=== PATIENT | female | born 1985 ===

== ENCOUNTER 2024-05-12 11:44 | Inpatient (IN) | payer MEDICAID, SELFPAY ==
--- NOTE | ~2024-05-12 | XR_ITS ---
EXAMINATION: XR HIP, RIGHT CLINICAL INFORMATION: Right hip pain. COMPARISON: None available. TECHNIQUE: Frontal view of the pelvis Two views of the right hip. FINDINGS: No fracture. No dislocation. Hip joints and sacroiliac joints and symphysis pubis are intact. XR/XR hip RT w PEL1V IMPRESSION: Normal pelvis and right hip.
--- NOTE | ~2024-05-12 | XR_ITS ---
EXAMINATION: XR CHEST CLINICAL INFORMATION: Rule out pneumonia COMPARISON: None available. TECHNIQUE: Frontal view of the chest was obtained. FINDINGS: The cardiac and mediastinal contours are normal. The lungs are clear. No pleural effusion or pneumothorax. Surgical clips under the left hemidiaphragm. Mild degenerative changes of the spine. XR/XR chest 1V IMPRESSION: No evidence for acute disease in the chest.
[2024-05-12 11:51] VITALS: BP 106/70; PULSE 42; O2SAT 98
[2024-05-12 11:57] VITALS: BP 123/61; PULSE 41; RESP 20; TEMP 36.4; O2SAT 100; BMI 24.2
--- NOTE | 2024-05-12 12:32 | PC.NURSE ---
Patient brought in by EMS w/ c/o R hip pain, when speaking to the patient during triage assessment, patient stated she would like an ultrasound because I might be . Patient also requesting to speak to a therapist as I have been under a lot of stress for a long time. Patient changed over into hospital attire w/ assistance of security, provider Jass made aware.
--- NOTE | 2024-05-12 12:36 | MHC.EDTECH ---
Patient belongings are in the washer/dryer closet in the ED POD.
[2024-05-12 13:49] VITALS: BP 130/77; PULSE 41; RESP 12; TEMP 35.8; O2SAT 100
--- NOTE | 2024-05-12 13:50 | ECG_ITS ---
Test Reason : BRADYCARDIA Blood Pressure : / mmHG Vent. Rate : 039 BPM Atrial Rate : 039 BPM P-R Int : 146 ms QRS Dur : 090 ms QT Int : 516 ms P-R-T Axes : 012 040 036 degrees QTc Int : 415 ms Marked sinus bradycardia Abnormal ECG No previous ECGs available Referred By: Jass Davis Electronically Signed By:JEFF NELSON MD
--- NOTE | 2024-05-12 14:35 | ED.GENADULT ---
HPI - General Adult General Chief complaint: General Medical Stated complaint: R HIP PAIN PER EMS Time Seen by Provider: 05/12/24 12:26 Source: patient Mode of arrival: ambulatory Limitations: no limitations History of Present Illness ED Provider: Jass Davis PA-C HPI narrative: 38-year-old female brought by EMS stating right hip pain. Patient was found sitting on the ground. Patient is not forthcoming during questioning. Patient does not want to speak much. Patient does states she would like to see therapist/ care team. Patient is not suicidal or homicidal. Patient denies falling to the ground. Patient will not elaborate further on any other physical complaints or symptoms. Patient just states right hip pain. Patient states just moved to the area. Patient will not state any medical or psych history. Related Data Home Medications ?Medication ?Instructions ?Recorded ?Confirmed No Known Home Meds 05/13/24 05/13/24 Allergies Allergy/AdvReac Type Severity Reaction Status Date / Time No Known Allergies Allergy Verified 05/12/24 11:59 Review of Systems Review of Systems: Right hip pain Yes all other systems are reviewed and are negative [facility] Social History Social History Advance Directives: No Advance Directives Information Provided: No Do you have a plan to hurt others: No Plan Physical Exam ED Vital Signs: Vital Signs - 24 hr 05/13/24 11:37 05/14/24 06:03 Temperature 97.1 F 97.2 F Pulse Rate 42 L 41 L Respiratory Rate 14 19 Blood Pressure 122/78 151/81 H Pulse Oximetry 100 100 Oxygen Delivery Method Room Air Room Air BMI result Body Mass Index 24.2 Const General: cooperative, healthy appearing, comfortable, no acute distress, well developed, alert and awake Orientation/consciousness: oriented to time and patient [facility]: Yes normal to inspection, Yes No palpable skull fracture present, Yes normocephalic, Yes atraumatic and No abrasion Ears: hearing grossly normal bilaterally, external ears normal, TM's normal bilaterally, TM normal on the right, TM normal on the left, EAC's normal, mastoids normal and no periauricular adenopathy Eyes General: appearance normal, both eyes and all related structures Neck Neck: Yes normal visual inspection, Yes full ROM, Yes no lymphadenopathy, Yes no meningeal signs, Yes trachea midline, Yes supple, No anterior neck swelling and No tender Chest Chest palpation & inspection: normal inspection of the chest and normal palpation of entire chest wall Resp Effort & Inspection: normal respiratory effort and able to speak in complete sentences Auscultation: clear to auscultation bilaterally Cardio Jugular venous distension: no JVD Heart sounds: S1 normal heart sound present and S2 normal heart sound present GI Inspection: Yes normal to inspection Palpation (GI): Soft to palpation, not firm, nontender, no guarding and not rigid General: No CVA tenderness and Yes no CVA tenderness Back/Spine/Pelvis Back: no CVA tenderness, No CVA tenderness and No back tenderness Skin General skin exam: no rashes or lesions noted, elasticity normal and turgor normal Neuro General: oriented to time, patient oriented x3, gait normal, tone normal, moves all extremities, Normal light touch and pain sensation, no meningeal signs, no focal motor deficits, CN's II-XI intact bilaterally and normal sensation to monofilament Extrem General: Yes normal to inspection and Yes full ROM Upper/lower leg/hip images: 1. slight hip tenderness on palpation. Negative for any ecchymosis, erythema, or deformity. Rest of extremity normal. Motor/neuro/vascular exam intact Psych Appearance: grossly normal, well kempt and not disheveled Course Reevaluation(s) Reevaluation #1: Patient very guarded, giving a false name will admit to the hospital Time: 09:35 Reevaluation #2: Physician observation ended as patient to be admitted Time: 09:36 Reevaluation #3: 05/14/24 706am Physician observation continued. VS stable, no acute events overnight S12 inpatient bed search observation never stopped did not have bed so she remained in our care in the ED Medications Administered Discontinued Medications Generic Name Dose Route Start Last Admin Trade Name Freq PRN Reason Stop Dose Admin Sodium Chloride 1,000 mls @ 999 mls/hr 05/12/24 14:48 05/12/24 18:16 Ns IV 05/12/24 15:48 Infused .Q1H1M STA Infusion Sodium Chloride 1,000 mls @ 999 mls/hr 05/12/24 18:10 05/12/24 19:31 Ns IV 05/12/24 19:10 Infused .Q1H1M STA Infusion Medical Decision Making Medical Decision Making MDM Narrative: 38-year-old female found sitting on the floor by EMS who states he has right hip pain. Patient denies falling. Patient not forthcoming. Patient has gestational like to speak to care team. Patient denies or wants they any cycle medical history. Patient found bradycardic. EKG shows marked sinus bradycardia. Patient denies any dizziness. Patient has changed into site gown and will have medical workup. On patient ambulates heart rate was up to 49. 6: 14pm: Patient Was a hard stick so IV ultrasound had to be placed. Labs were drawn fluids given. Patient states she feels better while being given fluids. Heart rate improved to 54. Patient is slightly leukopenic. UA normal. U tox negative. Alcohol negative. Patient walking around unlikely hip fracture but sent for x-ray. Patient is eating food. Plan is to do a 2nd troponin and patient to be evaluated the care team evaluation 6:41pm: patient's labs are normal. Patient feeling better. Care team consulted Michelle evaluated patient and states patient should stay overnight for Respite. she states patient is depressed due to losing her children to [facility] and has no place to live. She states patient has been couch hopping. She states patient is not suicidal or homicidal. 2nd troponin ordered. Patient Is sinus bradycardic. Patient asymptomatic. No shortness of breath no dizziness, no chest pain, and no hyportension. No need for any atropine. Patient slightly leukopenic. Signed out to JAY RILEY Differential Diagnosis Differential Diagnoses: The differential diagnosis associated with the presentation includes ( Myocardial infarction, dehydration, electrolyte deficiency, substance abuse, alcohol abuse,) Admission/Observation Consideration of admission/observation: Escalation of care including admission/observation considered Consult Healthcare Provider Management of the patient was discussed with: Spanish Language Lecturer (Care team Mcihelle) Lab Data [facility] Lab Attestation statement: I reviewed the patient's lab results. 05/12/24 16:56 05/12/24 16:56 Labs: Lab Results 05/12/24 05/12/24 05/12/24 Range/Units 14:40 15:14 16:56 WBC 2.6 L (4.8-10.8) X10*3/uL RBC 4.63 (4.20-5.50) X10*6/uL Hgb 12.6 (12.0-16.0) g/dl Hct 39.0 (37.0-47.0) % MCV 84.2 (80.0-98.0) fL MCH 27.2 (27.0-33.0) pg MCHC 32.3 (31.0-35.0) g/dl RDW 16.4 H (11.0-16.0) % Plt Count 306 (160-400) X10*3/uL MPV 9.3 L (9.4-12.3) fL Immature Gran % (Auto) 0.4 (0.0-0.4) % Neut % (Auto) 47.0 (45-73) % Lymph % (Auto) 38.9 (20-40) % [place] % (Auto) 8.4 (2-11) % Eos % (Auto) 3.8 (0-4) % Baso % (Auto) 1.5 (0-2) % Lymph # (Auto) 1.0 L (1.2-4.9) X10*3/uL [place] # (Auto) 0.2 (0.1-1.2) X10*3/uL Eos # (Auto) 0.1 (0.0-0.4) X10*3/uL Baso # (Auto) 0.0 (0.0-0.2) X10*3/uL Abs Immat Gran (auto) 0.01 (0.00-0.03) X10*3/uL Absolute Neuts (auto) 1.2 L (2.0-8.3) x10*3/uL Absolute Nucleated RBC 0.000 (0.0-0.012) X10*3/uL Nucleated RBC % (auto) 0.0 (0.0-0.2) /100WBC Hold Blue Top SEE NOTE Sodium 140 (135-145) mmol/L Potassium 4.5 (3.3-5.1) mmol/L Chloride 107 (96-108) mmol/L Carbon Dioxide 24 (22-29) mmol/L Anion Gap 14 (12-20) BUN 14 (9-16) mg/dL Creatinine 0.66 (0.5-1.4) mg/dL Estim Creat Clear Calc 109.2 Estimated GFR > 60 Random Glucose 66 (60-115) mg/dL Calcium 8.9 (8.4-10.2) mg/dL Magnesium 2.1 (1.6-2.6) mg/dL Total Bilirubin 0.3 (0.0-1.0) mg/dL AST 34 H (5-31) U/L ALT 23 (0-31) U/L Alkaline Phosphatase 77 (39-117) U/L Troponin I High Sens 4.0 (<3.5-17.0) ng/L Total Protein 7.3 (6.5-8.0) g/dL Albumin 3.5 (3.5-5.0) g/dL TSH 0.55 (0.32-4.0) uIU/mL Beta HCG, Quant < 2 mIU/mL Urine Color Yellow Urine Appearance Clear Urine pH 5.5 (5.0-9.0) Ur Specific [place] >= 1.030 H (1.005-1.025) Urine Protein Trace (Neg-Trace) mg/dL Urine Glucose (UA) Negative (Negative) mg/dL Urine Ketones Trace (Negative) mg/dL Urine Blood Negative (Negative) Urine Nitrite Negative (Negative) Ur Leukocyte Esterase Trace H (Negative) Urine RBC 0-2 (0-2) /HPF Urine WBC 0-5 (0-5) /HPF Ur Squamous Epith Cells 0-2 (0-2) /HPF Urine Bacteria None Seen (None Seen) Hyaline Casts 6-10 (0-2) /LPF Urine Test NEGATIVE (NEGATIVE) Urine Opiates Screen Not Detected (Not Detect) Ur Buprenorphine Scrn Not Detected (Not Detect) ng/mL Ur Oxycodone Screen Not Detected (Not Detect) ng/mL Urine Methadone Screen Not Detected (Not Detect) ng/mL Urine Fentanyl Screen Not Detected (Not Detect) Ur Barbiturates Screen Not Detected (Not Detect) Ur Phencyclidine Scrn Not Detected (Not Detect) Ur Amphetamines Screen Not Detected (Not Detect) U Benzodiazepines Scrn Not Detected (Not Detect) Urine Cocaine Screen Not Detected (Not Detect) U Marijuana (THC) Screen Not Detected (Not Detect) Ethyl Alcohol < 10 mg/dL Influenza Type A (PCR) NEGATIVE (Negative) Influenza Type B (PCR) NEGATIVE (Negative) RSV RNA Qual (PCR) NEGATIVE (Negative) SARS-CoV-2 RNA (RT-PCR) NEGATIVE (Negative) 05/12/24 Range/Units 19:10 WBC (4.8-10.8) X10*3/uL RBC (4.20-5.50) X10*6/uL Hgb (12.0-16.0) g/dl Hct (37.0-47.0) % MCV (80.0-98.0) fL MCH (27.0-33.0) pg MCHC (31.0-35.0) g/dl RDW (11.0-16.0) % Plt Count (160-400) X10*3/uL MPV (9.4-12.3) fL Immature Gran % (Auto) (0.0-0.4) % Neut % (Auto) (45-73) % Lymph % (Auto) (20-40) % [place] % (Auto) (2-11) % Eos % (Auto) (0-4) % Baso % (Auto) (0-2) % Lymph # (Auto) (1.2-4.9) X10*3/uL [place] # (Auto) (0.1-1.2) X10*3/uL Eos # (Auto) (0.0-0.4) X10*3/uL Baso # (Auto) (0.0-0.2) X10*3/uL Abs Immat Gran (auto) (0.00-0.03) X10*3/uL Absolute Neuts (auto) (2.0-8.3) x10*3/uL Absolute Nucleated RBC (0.0-0.012) X10*3/uL Nucleated RBC % (auto) (0.0-0.2) /100WBC Hold Blue Top Sodium (135-145) mmol/L Potassium (3.3-5.1) mmol/L Chloride (96-108) mmol/L Carbon Dioxide (22-29) mmol/L Anion Gap (12-20) BUN (9-16) mg/dL Creatinine (0.5-1.4) mg/dL Estim Creat Clear Calc Estimated GFR Random Glucose (60-115) mg/dL Calcium (8.4-10.2) mg/dL Magnesium (1.6-2.6) mg/dL Total Bilirubin (0.0-1.0) mg/dL AST (5-31) U/L ALT (0-31) U/L Alkaline Phosphatase (39-117) U/L Troponin I High Sens 4.2 (<3.5-17.0) ng/L Total Protein (6.5-8.0) g/dL Albumin (3.5-5.0) g/dL TSH (0.32-4.0) uIU/mL Beta HCG, Quant mIU/mL Urine Color Urine Appearance Urine pH (5.0-9.0) Ur Specific [place] (1.005-1.025) Urine Protein (Neg-Trace) mg/dL Urine Glucose (UA) (Negative) mg/dL Urine Ketones (Negative) mg/dL Urine Blood (Negative) Urine Nitrite (Negative) Ur Leukocyte Esterase (Negative) Urine RBC (0-2) /HPF Urine WBC (0-5) /HPF Ur Squamous Epith Cells (0-2) /HPF Urine Bacteria (None Seen) Hyaline Casts (0-2) /LPF Urine Test (NEGATIVE) Urine Opiates Screen (Not Detect) Ur Buprenorphine Scrn (Not Detect) ng/mL Ur Oxycodone Screen (Not Detect) ng/mL Urine Methadone Screen (Not Detect) ng/mL Urine Fentanyl Screen (Not Detect) Ur Barbiturates Screen (Not Detect) Ur Phencyclidine Scrn (Not Detect) Ur Amphetamines Screen (Not Detect) U Benzodiazepines Scrn (Not Detect) Urine Cocaine Screen (Not Detect) U Marijuana (THC) Screen (Not Detect) Ethyl Alcohol mg/dL Influenza Type A (PCR) (Negative) Influenza Type B (PCR) (Negative) RSV RNA Qual (PCR) (Negative) SARS-CoV-2 RNA (RT-PCR) (Negative) Independent Interpretation I performed an independent interpretation of an: EKG ( EKG sinus bradycardia) and Plain X-Ray Radiology Impression Discussion of test interpretation with radiology: I have reviewed the radiologist's reading. Independent Historian Clinical information obtained from an independent historian. History obtained from or confirmed by: EMS and Other ( patient is) External Record Review External record reviewed: Other Chronic Conditions Patient?s care impacted by: Other (depression) Discharge Plan Discharge Clinical Impression: Bradycardia, sinus, Depression Patient Disposition: Admitted As Inpatient Print Language: Vietnamese
--- NOTE | 2024-05-12 15:27 | PC.NURSE ---
Patient's HR noted to be in the 40's, provider aware, patient moved rooms to room w/ monitor, charge accounts audit clerk Darci aware.
[2024-05-12 15:29] LABS: Appearance Urine Clear; Color Urine Yellow; Glucose Urine UA Negative (Negative); Leukocyte Esterase Urine Trace (Negative); Nitrite Urine Negative (Negative); PH 5.5 (5.0-9.0); Specific Gravity - Urine >= 1.030 (1.005-1.025); UMIC TRIGGER UACC YES; Urine Blood Negative (Negative); Urine Ketones Trace mg/dL (Negative); Urine Protein Trace mg/dL (Neg-Trace)
[2024-05-12 15:30] LABS: UPreg QC Valid YES; Urine Pregnancy NEGATIVE (NEGATIVE)
[2024-05-12 15:39] LABS: Bacteria Urine None Seen (None Seen); RBC Urine 0-2 /HPF (0-2); Squamous Epithelial Cell Urine 0-2 /HPF (0-2); WBC Urine 0-5 /HPF (0-5)
[2024-05-12 15:46] LABS: Amphetamine Screen Urine Not Detected (Not Detect); Barbiturates, Urine Not Detected (Not Detect); Benzodiazepines Screen Urine Not Detected (Not Detect); Buprenorphine Scr Not Detected (Not Detect); Cannabinoid Screen Urine Not Detected (Not Detect); Cocaine Screen Urine Not Detected (Not Detect); Fentanyl, urine Not Detected (Not Detect); Methadone Screen, Urine Not Detected (Not Detect); Opiate Screen Urine Not Detected (Not Detect); Oxycodone Screen Urine Not Detected (Not Detect); Phencyclidine Screen Urine Not Detected (Not Detect)
--- NOTE | 2024-05-12 16:00 | PC.NURSE ---
Patient's labs and fluids delayed d/t difficult stick, multiple sticks by RNs, provider aware, to place US IV.
[2024-05-12 16:13] LABS: Influenza A PCR NEGATIVE (Negative); Influenza B PCR NEGATIVE (Negative); Resp Syncy Virus RNA Qual PCR NEGATIVE (Negative); SARS COV2 PCR INHOUSE NEGATIVE (Negative)
[2024-05-12] MEDS: 0.9 % Sodium Chloride 1,000 ML 999 ML IV ×2 (17:02→18:15)
[2024-05-12 17:03] VITALS: BP 143/79; PULSE 42; RESP 12
[2024-05-12 17:03] LABS: MANUAL DIFF FLAG NO
[2024-05-12 17:05] LABS: Hemoglobin 12.6 g/dl (12.0-16.0); Mean Corpuscular HGB Conc 32.3 g/dl (31.0-35.0); Mean Corpuscular Hemoglobin 27.2 pg (27.0-33.0); Mean Corpuscular Volume 84.2 fL (80.0-98.0); Mean Platelet Volume 9.3 fL (9.4-12.3); Platelet Count 306 X10*3/uL (160-400); Red Blood Count 4.63 X10*6/uL (4.20-5.50); Red Cell Distribution Width 16.4 % (11.0-16.0); White Blood Count 2.6 X10*3/uL (4.8-10.8)
[2024-05-12 17:06] LABS: Basophils Percent Auto 1.5 % (0-2); Eosinophils Absolute Auto 0.1 X10*3/uL (0.0-0.4); Eosinophils Percent Auto 3.8 % (0-4); Imm Gran Abs Auto 0.01 X10*3/uL (0.00-0.03); Imm Gran Pct Auto 0.4 % (0.0-0.4); Lymphocytes Percent Auto 38.9 % (20-40); Monocytes Absolute Auto 0.2 X10*3/uL (0.1-1.2); Monocytes Percent Auto 8.4 % (2-11); Neutrophils Absolute Auto 1.2 x10*3/uL (2.0-8.3)
[2024-05-12 17:21] LABS: Ethanol < 10 mg/dL
[2024-05-12 17:32] LABS: Alanine Aminotransferase 23 U/L (0-31); Albumin Level 3.5 g/dL (3.5-5.0); Alkaline Phosphatase 77 U/L (39-117); Anion Gap 14 (12-20); Aspartate Amino Transferase 34 U/L (5-31); Bilirubin Total 0.3 mg/dL (0.0-1.0); Blood Urea Nitrogen 14 mg/dL (9-16); Calcium 8.9 mg/dL (8.4-10.2); Carbon Dioxide 24 mmol/L (22-29); Chloride 107 mmol/L (96-108); Creatinine Clr Calc Pharmacy 109.2; Estimated Glomerular Filt Rate > 60; Glucose Random 66 mg/dL (60-115); Magnesium 2.1 mg/dL (1.6-2.6); Potassium 4.5 mmol/L (3.3-5.1); Sodium 140 mmol/L (135-145); Total Protein 7.3 g/dL (6.5-8.0)
[2024-05-12 17:45] LABS: HCG Quantitative < 2 mIU/mL; TSH reflex Free T4 0.55 uIU/mL (0.32-4.0)
[2024-05-12 17:51] VITALS: BP 135/75; PULSE 41; RESP 10; TEMP 36.4; O2SAT 100
[2024-05-12 18:10] VITALS: PULSE 54; RESP 10
[2024-05-12 19:43] LABS: Troponin-I High Sensitivity 4.2 ng/L (<3.5-17.0)
--- NOTE | 2024-05-12 21:04 | MHC.CARE ---
Addendum entered by Rebecca Campo LCSW 05/12/24 21:28: Contacted [facility] at 9:27pm, spoke with Dalia. Referral activated and will be reviewed. Original Note: Pt is a [facility] (respite) bedsearch. [facility] has no beds until Sunday. Referral sent to [facility]
--- NOTE | 2024-05-12 22:24 | PC.NURSE ---
RN to RN report given to Rubi, all questions answered.
--- NOTE | 2024-05-12 22:35 | PC.NURSE ---
Patient's IV line removed, walked over to POD w/ EDT, So. Patient's phone to be returned w/ her belongings already locked in pod.
--- NOTE | 2024-05-13 05:00 | PC.NURSE ---
patient had come out around 0300 and asked again about taking a shower, was instructed she must wait until am then asked about dc. discussed this briefly with provider but it seemed unclear that a 0400 dc seemed like the best safety plan for this client, awaiting client to ask again for dc.
--- NOTE | 2024-05-13 07:07 | PC.NURSE ---
Assumed care of patient at 0645. Patient is observed resting in their room. No signs of distress observed. Will continue plan of care.
--- NOTE | 2024-05-13 10:59 | MHC.CARE ---
Pt initially checked into ED under a false name and reported she was Yesica Jane, she gave of 1985.
[2024-05-13 11:37] VITALS: BP 122/78; PULSE 42; RESP 14; TEMP 36.2; O2SAT 100
--- NOTE | 2024-05-14 05:47 | PC.NURSE ---
Patient slept through the night, no distress observed/reported, patient is currently not on any home medication, VSS, disposition per care team is section-12 inpatient bed search, will continue to monitor
[2024-05-14 06:03] VITALS: BP 151/81; PULSE 41; RESP 19; TEMP 36.2; O2SAT 100
--- NOTE | 2024-05-14 06:58 | PC.NURSE ---
Assumed care of patient at 0645. Patient is observed resting in their bed. No signs of distress observed. Will continue plan of care.
[2024-05-14 14:24] VITALS: BP 132/80; PULSE 40; RESP 14; TEMP 36.1; O2SAT 100
[2024-05-14 19:18] VITALS: BP 139/73; PULSE 48; RESP 18; TEMP 36.4; O2SAT 100
[2024-05-14 19:19] VITALS: BMI 26.2
--- NOTE | 2024-05-14 19:20 | PC.ADMIT ---
Anjelica arrived to the unit at 1605, met with Dr. Iqbal declined to sign in currently on a 12B. Special Warfare Combatant Crewman reviewed 12B notice of right, she requested an emergency hearing in the [address], [employer] ([facility]) was called and message left around 1830, message left on mixer pigment Kathryn Gomez's voicemail. Skin check done, with female RN appears intact. Anjelica declined to sign or participate on admission, she reports that she was brought to the ER, Because I had hip pain, I don't feel safe being here, I just needed help with housing. Per assessment Anjelica was found sitting outside [facility] and complained of hip pain, upon arrival to the ED she reported to speak with a therapist, she also asked for an ultrasound as she Might be . Per assessment they collected collateral information that reported patient has been out of it after loosing large amounts of weight and self-harming herself by biting herself and stating she was bitten by a snake. She has a one year old and an 8 year old who are currently living with the grandmother. Anjelica has no previous history of mental illness, per assessment she has been engaging in risky behaviors. She is currently on 15 minute checks.
[2024-05-14 20:00] VITALS: BP 108/73; PULSE 56; RESP 16; TEMP 36.4; O2SAT 100
[2024-05-15 08:00] VITALS: BP 123/76; PULSE 53; RESP 16; TEMP 36.4; O2SAT 100
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
[2024-05-15] MEDS: Milk of Magnesia 30 ML ORAL.SUSP PO (16:09)
[2024-05-15 20:00] VITALS: BP 117/66; PULSE 50; RESP 18; TEMP 36.6; O2SAT 100
[2024-05-15] MEDS: hydrOXYzine HCL 25 MG TABLET PO (22:09)
[2024-05-15] MEDS: Melatonin 3 MG TABLET PO (22:09)
[2024-05-16 08:00] VITALS: BP 123/70; PULSE 52; RESP 18; TEMP 36.4; O2SAT 100
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
--- NOTE | 2024-05-16 14:02 | PC.NURSE ---
T/w spoke with Zoraida from [employer] regarding pt's request for an emergency hearing. Zoraida reported hearing from [facility] this morning (05/16) regarding the request. Zoraida stated [facility] should have reached out to pt directly, as their protocol states. Zoraida reported she will be in touch with [facility] and let [facility] know how to proceed as the 24hr time frame has now passed.
[2024-05-16] MEDS: Milk of Magnesia 30 ML ORAL.SUSP PO (15:06)
[2024-05-16 20:00] VITALS: BP 134/65; PULSE 48; RESP 16; TEMP 36.4; O2SAT 100
[2024-05-16] MEDS: risperiDONE 1 MG TABLET PO (22:36)
[2024-05-16] MEDS: Melatonin 3 MG TABLET PO (22:36)
[2024-05-17 08:00] VITALS: BP 126/66; PULSE 50; RESP 18; TEMP 36.3; O2SAT 100
[2024-05-17] MEDS: risperiDONE 1 MG TABLET PO ×2 (09:53→21:52)
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
[2024-05-17 20:00] VITALS: BP 119/67; PULSE 43; RESP 18; TEMP 36.1; O2SAT 100
[2024-05-17] MEDS: Docusate Sodium 100 MG CAPSULE PO (21:52)
[2024-05-17] MEDS: Melatonin 3 MG TABLET PO (21:52)
[2024-05-17] MEDS: bisacodyL 5 MG TABLET.DR PO (21:52)
[2024-05-17] MEDS: OLANZapine 5 MG TABLET PO (21:55)
[2024-05-18 08:11] VITALS: BP 122/72; PULSE 44; RESP 17; TEMP 36.4; O2SAT 100
[2024-05-18] MEDS: Docusate Sodium 100 MG CAPSULE PO ×2 (09:02→20:57)
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
[2024-05-18 20:00] VITALS: BP 123/74; PULSE 72; RESP 18; TEMP 36.6; O2SAT 100
[2024-05-18] MEDS: bisacodyL 5 MG TABLET.DR PO (20:57)
[2024-05-18] MEDS: Melatonin 3 MG TABLET PO (20:57)
[2024-05-19 07:58] VITALS: BP 109/55; PULSE 44; RESP 14; TEMP 36.8; O2SAT 100
[2024-05-19] MEDS: Milk of Magnesia 30 ML ORAL.SUSP PO (08:45)
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
[2024-05-19] MEDS: Paliperidone ER 3 MG TAB.ER.24 PO (12:21)
[2024-05-19 19:43] VITALS: BP 146/84; PULSE 48; RESP 18; TEMP 36.6; O2SAT 100
[2024-05-20 08:00] VITALS: BP 115/58; PULSE 40; RESP 17; TEMP 36.6; O2SAT 100
[2024-05-20] MEDS: Paliperidone ER 3 MG TAB.ER.24 PO (09:00)
[2024-05-20 10:05] VITALS: BP 129/77; PULSE 46; O2SAT 100
--- NOTE | 2024-05-20 10:18 | ECG_ITS ---
Test Reason : dizzy/bradycardia Blood Pressure : / mmHG Vent. Rate : 041 BPM Atrial Rate : 041 BPM P-R Int : 148 ms QRS Dur : 092 ms QT Int : 478 ms P-R-T Axes : 009 038 036 degrees QTc Int : 394 ms Marked sinus bradycardia Abnormal ECG When compared to the previous EKG of No significant changes seen Referred By: Trace Iqbal Electronically Signed By:JEFF NELSON MD
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
[2024-05-20] MEDS: Milk of Magnesia 30 ML ORAL.SUSP PO (17:57)
[2024-05-20 20:00] VITALS: BP 148/72; PULSE 46; RESP 18; TEMP 36.4; O2SAT 98
[2024-05-20] MEDS: Melatonin 3 MG TABLET PO (20:41)
[2024-05-21 07:45] VITALS: BP 107/55; PULSE 50; RESP 16; TEMP 36.2; O2SAT 100
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
[2024-05-21] MEDS: risperiDONE 1 MG TABLET PO (09:59)
[2024-05-21] MEDS: Docusate Sodium 100 MG CAPSULE PO (18:00)
[2024-05-21] MEDS: Milk of Magnesia 30 ML ORAL.SUSP PO (18:00)
[2024-05-21 20:00] VITALS: BP 134/79; PULSE 47; RESP 16; TEMP 36.6; O2SAT 100
[2024-05-21] MEDS: bisacodyL 5 MG TABLET.DR PO (21:26)
[2024-05-21] MEDS: Melatonin 3 MG TABLET PO (21:26)
[2024-05-21] MEDS: risperiDONE 2 MG TABLET PO (21:26)
[2024-05-22 07:00] VITALS: BMI 26.0
[2024-05-22 08:10] VITALS: BP 112/59; PULSE 52; RESP 16; TEMP 36.5; O2SAT 100
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
[2024-05-22] MEDS: Docusate Sodium 100 MG CAPSULE PO (15:40)
[2024-05-22] MEDS: risperiDONE 1 MG TABLET PO (15:40)
[2024-05-22 19:12] VITALS: BP 120/59; PULSE 50; TEMP 36.4; O2SAT 100
[2024-05-23 08:10] VITALS: BP 110/55; PULSE 44; RESP 18; TEMP 36.9; O2SAT 99
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
== END 2024-05-23 13:27 | disposition home or self-care (01) | DRG 750 ==
LOC: HO.ED 05-13 17:42 → HO.PM5 05-14 14:26
PROVIDERS: Physician Assistant; Admitting Provider Psychiatry & Neurology Psychiatry; Emergency Provider Emergency Medicine; Visit Provider Psychiatry & Neurology Psychiatry
DX: F20.9 Schizophrenia, unspecified (principal); Z20.822 Contact with and (suspected) exposure to COVID-19; Z98.84 Bariatric surgery status
CPT/HCPCS: 0241U; 36415; 71045; 73502; 80053; 80307; 81001; 81025; 83735; 84443; 84484; 84702; 85025; 93005; 99285; S9485

== ENCOUNTER → 2024-05-12 13:50 | Outpatient (BNV) | payer SELFPAY | PROVIDERS: Emergency Provider Emergency Medicine; Visit Provider Internal Medicine Cardiovascular Disease | DX: R00.1 Bradycardia, unspecified (principal) | CPT/HCPCS: 93010 ==

== ENCOUNTER 2024-05-14 14:16 | Outpatient (BNV) | payer MEDICAID, SELFPAY | END 2024-05-20 10:18 | PROVIDERS: Admitting Provider Psychiatry & Neurology Psychiatry; Emergency Provider Emergency Medicine; Visit Provider Internal Medicine Cardiovascular Disease | DX: R00.1 Bradycardia, unspecified (principal) | CPT/HCPCS: 93010 ==

== ENCOUNTER → 2024-05-14 14:16 | Outpatient (BNV) | payer MEDICAID, SELFPAY | PROVIDERS: Admitting Provider Psychiatry & Neurology Psychiatry; Emergency Provider Emergency Medicine; Visit Provider Psychiatry & Neurology Psychiatry | DX: F29 Unspecified psychosis not due to a substance or known physiological condition (principal) | CPT/HCPCS: 90792; 99231; 99232; 99239 ==